=== PATIENT | male | born 1955 | race Caucasian/White ===

== ENCOUNTER 2017-08-05 08:00 | Emergency (ER) | payer OTHER ==
[2017-08-05] MEDS ORDERED: Ondansetron 4 MG/2 ML SDV IVPUSH ONE (08:50)
[2017-08-05] MEDS ORDERED: HYDROmorphone 1 MG/ML Syringe IVPUSH ONE ×2 (08:50→10:32)
--- NOTE | 2017-08-05 08:50 | EDM.PDOC ---
ED HPI GENERAL MEDICAL PROBLEM - General Chief Complaint: Trauma Stated Complaint: fall Time Seen by Provider: 08/05/17 08:37 Source of Information: Reports: Patient History Limitations: Reports: No Limitations - History of Present Illness INITIAL COMMENTS - FREE TEXT/NARRATIVE: Patient is a 61-year-old gentleman who presents to the emergency department this morning with a complaint of left foot pain secondary to fall from roof. Patient states that he was wearing a harness as he was working on a roof and a harness did partially suspend his fall. However, he did strike his left foot on he believes was an air conditioning unit. Patient does have history of lumbar surgery with hardware. At this time. Patient is complaining of mild low back pain and severe left foot pain. Patient denies any head injury, chest pain, shortness of breath, loss of consciousness, pelvic pain, knee pain, right lower extremity pain, or neck pain. Onset: Today Onset Date: 08/05/17 Location: Reports: Back, Lower Extremity, Left Quality: Reports: Ache Severity: Mild Improves with: Reports: None Worsens with: Reports: Movement Context: Reports: Trauma (fall From roof) Associated Symptoms: Reports: No Other Symptoms Left Ankle Pain Score (Numeric/FACES): 10 - Related Data Allergies Allergy/AdvReac Type Severity Reaction Status Date / Time No Known Drug Allergies Allergy Cannot Verified 08/05/17 08:22 Remember Home Meds: Home Meds . [No Known Home Meds] 08/05/17 [History] Review of Systems - Review of Systems Review Of Systems: ROS reveals no pertinent complaints other than HPI. Constitutional: Reports: No Symptoms Eyes: Reports: No Symptoms Ears: Reports: No Symptoms Nose: Reports: No Symptoms Mouth/Throat: Reports: No Symptoms Respiratory: Reports: No Symptoms Cardiovascular: Reports: No Symptoms GI/Abdominal: Reports: No Symptoms Genitourinary: Reports: No Symptoms Musculoskeletal: Reports: Back Pain, Foot Pain Skin: Reports: No Symptoms Neurological: Reports: No Symptoms Psychiatric: Reports: No Symptoms ED EXAM, GENERAL - Physical Exam Exam: See Below Exam Limited By: No Limitations General Appearance: Alert, WD/WN, Mild Distress Eye Exam: Bilateral Eye: Normal Inspection Ears: Normal External Exam, Normal Canal Nose: Normal Inspection, No Blood Throat/Mouth: Normal Inspection, Normal Oropharynx, No Airway Compromise Head: Atraumatic, Normocephalic Neck: Normal Inspection, Supple, Non-Tender, Full Range of Motion Respiratory/Chest: No Respiratory Distress, Lungs Clear Cardiovascular: Regular Rate, Rhythm, No Murmur GI/Abdominal: Normal Bowel Sounds, Soft, Non-Tender, No Distention, Pelvis Stable Back Exam: Paraspinal Tenderness. No: CVA Tenderness (L), CVA Tenderness (R) Extremities: Leg Pain (Left heel plantar service pain to palpation. No ecchymosis, edema, or obvious deformity noted.) Neurological: Alert, Oriented, Normal Cognition Psychiatric: Normal Affect, Normal Mood Skin Exam: Warm, Dry, Intact, Normal Color, No Rash ED TRAUMA PROCEDURES - Splinting Left Lower Extremity Splint Site: Left lower extremity Pre-Procedure NV Status: Normal Post-Procedure NV Status: Normal Splint Material: Fiberglass Splint Design: Posterior, Other (OCL) Provider Post-Splint Application NV Check: NV Status Normal, Good Position Complications: No Course - Vital Signs Last Recorded V/S: Last Vital Signs Temp 98.6 F 08/05/17 08:00 Pulse 65 08/05/17 08:00 Resp 20 08/05/17 08:00 BP 136/74 08/05/17 08:00 Pulse Ox 100 08/05/17 08:00 - Orders/Labs/Meds Orders: Active Orders 24 hr Category Date Time Status Ankle Min 3V Lt [CR] Stat Exams 08/05/17 08:13 Taken Foot Comp Min 3V Lt [CR] Stat Exams 08/05/17 08:13 Taken Foot wo Cont Lt [CT] Stat Exams 08/05/17 08:59 Taken Lumbar Spine 2 or 3V [CR] Stat Exams 08/05/17 08:37 Taken Tibia Fibula Lt [CR] Stat Exams 08/05/17 08:37 Taken Meds: Medications Discontinued Medications Generic Name Dose Route Start Last Admin Trade Name Freq PRN Reason Stop Dose Admin Hydromorphone HCl 0.5 mg 08/05/17 08:50 08/05/17 09:05 Dilaudid IVPUSH 08/05/17 08:51 0.5 mg ONETIME ONE Administration Ondansetron HCl 4 mg 08/05/17 08:50 08/05/17 09:00 Zofran IVPUSH 08/05/17 08:51 4 mg ONETIME ONE Administration - Radiology Interpretation Free Text/Narrative:: X-ray of foot shows acute complex multidirectional calcaneal fracture. CT of foot shows severely comminuted calcaneal fracture with 3 primary fracture lines extending through the posterior subtalar facet and subchondral endplate, numerous additional fracture lines up to [address] Results Date: 08/05/17 - Re-Assessments/Exams Free Text/Narrative Re-Assessment/Exam: 08/05/17 10:29 Patient afebrile, nontoxic appearing, vital signs stable, pain controlled. Discussed case with Dr. Schreiber, [facility] orthopedic surgeon and his suggestion was to place patient in posterior OCL splint and patient should be allowed to be transported back to [place] for surgical consultation and intervention. There is no immediate necessity to be transported to [place] for surgical intervention at this point. 08/05/17 10:51. Patient will be flown via private aircraft to [place] and then present directly to the local emergency department that has orthopedic surgery for intervention. Departure - Departure Time of Disposition: 10:51 Disposition: Home, Self-Care 01 Condition: Good Clinical Impression: Left calcaneal fracture Qualifiers: Encounter type: initial encounter Calcaneus location: unspecified portion of calcaneus Fracture type: closed Fracture alignment: displaced Qualified Code(s) : S92.002A - Unspecified fracture of left calcaneus, initial encounter for closed fracture - Discharge Information Instructions: Cast or Splint Care, Adult, [id number], Calcaneal Fracture Repair Surgery Referrals: PCP,Not In Area [Primary Care Provider] - Forms: ED Department Discharge Additional Instructions: Immediately upon arriving home today, Go directly to an emergency department that has orthopedic surgery consultation available for appropriate care of your calcaneal fracture. - My Orders Last 24 Hours: My Active Orders 08/05/17 08:13 Ankle Min 3V Lt [CR] Stat Foot Comp Min 3V Lt [CR] Stat 08/05/17 08:37 Lumbar Spine 2 or 3V [CR] Stat Tibia Fibula Lt [CR] Stat 08/05/17 08:59 Foot wo Cont Lt [CT] Stat - Assessment/Plan Last 24 Hours: My Active Orders 08/05/17 08:13 Ankle Min 3V Lt [CR] Stat Foot Comp Min 3V Lt [CR] Stat 08/05/17 08:37 Lumbar Spine 2 or 3V [CR] Stat Tibia Fibula Lt [CR] Stat 08/05/17 08:59 Foot wo Cont Lt [CT] Stat Assessment:: Calcaneal fracture of left foot Plan: Patient will be discharged and allowed to be transported back to [place] for further intervention
[2017-08-05] MEDS ORDERED: Acetaminophen/oxyCODONE 325-5 MG Tab PO ONE (10:32)
== END 2017-08-05 11:15 | disposition home or self-care (01) ==
LOC: KA.ED 08:00
DX: S92.002A Unspecified fracture of left calcaneus, initial encounter for closed fracture (principal); W17.89XA Other fall from one level to another, initial encounter
CPT/HCPCS: 29515; 72100; 73590-LT; 73610-LT; 73630-LT; 73700-LT; 96374; 96375; 99284; A9270-GY; J1170; J2405